=== PATIENT | female | born 1990 | race African-American/Black ===

== ENCOUNTER 2016-06-27 03:51 | Inpatient (IN) | payer OTHER ==
[~2016-06-27] VITALS: Ht 160 cm; Wt 59.0 kg
--- NOTE | ~2016-06-27 | H ---
[facility] [address] HISTORY AND PHYSICAL Name: AMISHA ELDER Room #: 408-P ADM IN M.R.#: [id number] Admission: 06/27/16 Attend Phys: Dick Schaffer Discharge: Date of : 89 Report #: [id number] THIS REPORT FOR: //name// CC: [facility] physician/PCP Dick Keane MD DATE OF SERVICE: 06/27/2016 CHIEF COMPLAINT: Abdominal pain. HISTORY OF PRESENT ILLNESS: The patient is a 25-year-old female with history of asthma, recent admission for appendicitis status post appendectomy on 06/19/2016, presented to the emergency room with an acute onset of low abdominal pain and rectal pain. The patient was admitted around June 18 for abdominal pain, had a CAT scan consistent with appendicitis and subsequently underwent an appendectomy on June 19 and was discharged home on June 19. The patient states she has been doing apparently well until last night when she started having severe abdominal pain while she was walking around. The pain is primarily in the lower abdomen and also in the rectal area. No history of any diarrhea, no nausea or vomiting, no fever or chills. Workup in the emergency room showed right adnexal mass on the CAT scan ____ shown to be right ovarian hemorrhagic cyst. The patient denies any shortness of breath, chest pain. PAST MEDICAL HISTORY: Significant for asthma as a child. No history of any peptic ulcer disease or bleeding disorder. No history of any surgery rather than appendectomy in the past. No hypertension and no diabetes. HOME MEDICATIONS: Include hydrocodone/APAP and Colace. Please look at the nursing documentation for dosages. ALLERGIES: She is allergic to ZOFRAN, unknown reaction. SOCIAL HISTORY: No smoking, alcohol abuse or illicit drug abuse. FAMILY HISTORY: Significant for asthma. REVIEW OF SYSTEMS: CONSTITUTIONAL: No fever, no chills, no weight loss, no weight gain. EYES: No change in vision. THROAT: Denies any sore throat. CARDIOVASCULAR: No chest pain, dizziness or palpitations. RESPIRATORY: No cough or expectoration. GASTROINTESTINAL: As above. [facility] [address] [place] [address] HISTORY AND PHYSICAL Name: JAELNATHANHEATHER BUENROSTRO Room #: 408-P [facility] IN M.R.#: [id number] Admission: 06/27/16 Attend Phys: Dick Schaffer Discharge: Date of : 89 Report #: [id number] GENITOURINARY: No dysuria or hematuria. No vaginal discharge. NEUROLOGIC: No focal numbness or weakness of the extremities. PSYCHIATRIC: No anxiety or depression. The 12-point review of system is negative other than the positives and the negatives dictated in the history of present illness and the review of system. PHYSICAL EXAMINATION: VITAL SIGNS: Blood pressure is 127/82, heart rate of 100 per minute, afebrile. The patient is saturating 100% on room, not in acute respiratory distress. HEENT: Eyes: Pupils equal and reactive to light. Throat appears normal. NECK: Supple. No JVD, no bruit, no lymphadenopathy. CARDIOVASCULAR: S1, S2, no S3, no murmur. CHEST: Bilateral air entry present. Clear on auscultation. ABDOMEN: Soft. Bowel sounds present. No mass, no organomegaly. There is tenderness in the lower abdomen. There is no guarding. PERIPHERY: No pedal edema. No calf tenderness. Dorsalis pedis 1+. NEUROLOGICAL: No gross motor or sensory deficit. LABORATORY DATA: Reviewed. White count is 19,000. BUN and creatinine are 15 and 0.9. Hemoglobin is normal at 13.4. Sodium is 137. AST and ALT are within normal limit. Lactic acid is 2.7. UA revealed trace protein, trace ketones and trace blood. IMAGING STUDIES: Ultrasound of the pelvis showed 29 x 20 x 30 mm complex thick-walled cyst, likely hemorrhagic ovarian cyst. CT of the abdomen showed postoperative changes. No abscess. There is also a right adnexal mass. ASSESSMENT AND PLAN: 1. Abdominal pain. 2. Right adnexal cyst/right ovarian hemorrhagic cyst. The patient will be continued on pain control with fentanyl IV p.r.n. I have also ordered p.o. pain medications. 3. Dehydration. The patient will be continued on IV fluids. 4. Status post appendectomy on 06/19/2016. Dr. Keane will be consulted. 5. Leukocytosis, most likely stress-related to hemorrhagic ovarian cyst. We will repeat CBC again this afternoon along with lactic acid. 6. Deep venous thrombosis prophylaxis. She will be placed on SCD on the leg for DVT prophylaxis. Treatment plan has been explained to the patient in detail. <ELECTRONICALLY SIGNED> By: Taye Carrillo MD 06/27/16 1336 [id number] Taye Carrillo MD /nt
--- NOTE | ~2016-06-27 | HC ---
[facility] [place] [address] [address] [place] [address] CONSULTATION Name: AMISHA ELDER PORTER Room #: [facility] IN M.R.#: [id number] Admission: 06/27/16 Attend Phys: Dick Schaffer Discharge: Date of : 90 Report #: [id number] THIS REPORT FOR: //name// CC: [facility] physician/PCP Dick Schaffer DATE OF SERVICE: 06/27/2016 HISTORY OF PRESENT ILLNESS: The patient is a very pleasant 25-year-old young lady who underwent laparoscopic appendectomy approximately one week ago. She was discharged home and then reports she had been feeling well over the past several days until yesterday when she developed deep pelvic and lower abdominal pain, worse on the right side. She was seen in the Emergency Department where she was noted to have an impressive leukocytosis at 19,000. CT scan of the abdomen and pelvis was obtained in the Emergency Department early this morning, which showed no evidence of abscess in the periappendiceal region. There was a trace amount of fluid in pericolic gutter, moderate gas and stool throughout the colon, no obvious obstruction, no gross free air. A cystic mass in the posterior cul-de-sac was noted measuring approximately 42 mm in greatest dimension. This would be consistent with an ovarian cyst. Ultrasound of the pelvis transvaginal was obtained and this showed a right pelvic complex cyst measuring 29 x 20 x 30 mm with low level internal echos consistent with hemorrhagic cyst, small hematoma could not be excluded. No obvious free air was identified. The patient was admitted to [facility] and was treated with IV fluids and analgesics. PAST MEDICAL HISTORY: Positive for asthma as a child, negative for hypertension or diabetes. HOME MEDICATIONS: Included [facility] and Colace only. ALLERGIES: Include ZOFRAN. SOCIAL HISTORY: Negative for tobacco, ETOH or drug use. FAMILY HISTORY: Positive for asthma. REVIEW OF SYSTEMS: A 12-point review of systems was otherwise negative except for that mentioned in the HPI. PHYSICAL EXAMINATION: VITAL SIGNS: The patient is afebrile and normotensive. GENERAL: She is awake, alert and oriented. She is in no acute distress. She does give appropriate history. Normal mood and affect is appreciated. HEENT: Head is atraumatic and normocephalic. Pupils are equally round and reactive to light. Cranial nerves are intact and symmetric bilaterally. No icterus is appreciated. Mucosae are pink and moist. NECK: Supple without lymphadenopathy. LUNGS: Clear to auscultation. No respiratory distress is [facility] [address] [place] [address] CONSULTATION Name: AMISHA ELDER Room #: 408-P [facility] IN M.R.#: [id number] Admission: 06/27/16 Attend Phys: Dick Schaffer Discharge: Date of : 90 Report #: [id number] noted. ABDOMEN: Soft and mildly distended. She is mildly tender to palpation in the pelvis and right lower quadrant. No obvious rebound or guarding is appreciated. DATA: Laboratory studies are reviewed. White count of 19,000, hemoglobin of 13.4, BUN 15, creatinine 0.9. Lactate was elevated at 2.7. Urinalysis showed trace protein, trace ketones and trace blood. IMPRESSION AND PLAN: 1. A 25-year-old female 1 week status post laparoscopic appendectomy for acute appendicitis. Final pathology showed acute suppurative appendicitis. No perforation had been identified at the operative setting, now with leukocytosis and possible fluid collection in the pelvis versus hemorrhagic ovarian cyst. No obvious leak from appendectomy site and no obvious abscess in the region near the cecum. Agree with plan for admission for IV fluid hydration and correction of electrolytes. We will begin Zosyn 3.375 g IV q.6 hours for a chance that there is an abscess formation and process. 2. We will repeat CT scan of the abdomen and pelvis with oral and IV contrast in approximately 36 hours to evaluate whether the fluid visualized in the right lower pelvis is more consistent with abscess versus ovarian cyst versus loop of bowel. CT scan from admission reviewed in detail with staff radiologist today. Will continue to follow closely and make further recommendations based upon clinical status. Consultation is very much appreciated. <ELECTRONICALLY SIGNED> By: Nathan Keane MD 06/28/16 1356 [id number] Nathan Keane MD /nt
[~2016-06-27 03:51] MED LIST: ALBUTEROL SUL5 MG/ML IH; AMOXICILLIN875 MG PO; COLACE100 MG PO; DAY TIME COLD-1 EAC1 PO; FLONASE 0.05%50 MCG NASAL; HYDROCODONE-ACE15 ML PO; HYDROCODONE-AP1 EAC6 PO; IBUPROFEN 600600 M1 PO; NAPROSYN500 MG PO; NOHOMEMEDICATIONS; NORCO 5-325 TA1 EACH PO; NYQUIL D COLD295 ML; PROMETHAZINE-C120 ML PO; PROVENTIL HFA6.7 G1 INH; TRAMADOL 50 MG50 MG PO; VENTOLIN HFA 1818 GM INH; ZPAK PO
[2016-06-27 03:52] VITALS: BP 127/82
[2016-06-27 04:14] LABS: ABSOLUTE NEUTROPHILS 10.5 thou/uL (1.4-8.2); BASOPHILS 0.5 % (0.0-2.0); HEMATOCRIT 40.7 % (37.0-47.0); HEMOGLOBIN 13.4 gm/dL (12.0-15.0); MCH 28.7 pg (26.0-34.0); MCV 87.2 fL (80.0-100.0); MONOCYTES 5.4 % (1.0-8.0); PLATELET COUNT 305 thou/uL (150-400); POLYS 55.1 % (36.0-66.0); RBC 4.66 mil/uL (4.20-5.00); RDW 13.1 % (10.5-14.5)
[2016-06-27 04:15] LABS: MANUAL DIFF NO
[2016-06-27 04:17] LABS: CALCIUM 9.1 mg/dL (8.5-10.1); CREATININE 0.9 mg/dL (0.6-1.3)
[2016-06-27 04:22] LABS: ALBUMIN 4.4 g/dL (3.4-5.0); DIRECT BILIRUBIN 0.1 mg/dL (<0.1-0.3); TOTAL BILIRUBIN 0.3 mg/dL (<0.1-1.0); TOTAL PROTEIN 8.7 g/dL (6.4-8.2)
[2016-06-27 07:13] LABS: URINE BILIRUBIN NEGATIVE (Negative); URINE BLOOD TRACE (Negative); URINE COLOR YELLOW; URINE GLUCOSE-RANDOM* NEGATIVE (Negative); URINE KETONES TRACE (Negative); URINE NITRITE NEGATIVE (Negative); URINE PROTEIN (DIPSTICK) TRACE (Negative); URINE SPECIFIC GRAVITY <= 1.005 (1.003-1.035); URINE UROBILINOGEN 0.2 E.U./dl (0.2-1.0)
[2016-06-27 07:14] VITALS: BP 96/56
[2016-06-27 17:00] LABS: ABSOLUTE NEUTROPHILS 4.8 thou/uL (1.4-8.2); BASOPHILS 0.4 % (0.0-2.0); EOSINOPHILS 1.6 % (0.0-3.0); HEMATOCRIT 35.7 % (37.0-47.0); HEMOGLOBIN 11.9 gm/dL (12.0-15.0); MCH 29.1 pg (26.0-34.0); MCHC 33.2 % (28.0-37.0); MCV 87.6 fL (80.0-100.0); RBC 4.08 mil/uL (4.20-5.00); RDW 12.6 % (10.5-14.5); WBC 8.8 thou/uL (4.0-11.0)
[2016-06-27 17:01] LABS: MANUAL DIFF NO; PLATELET COUNT 209 thou/uL (150-400)
[2016-06-27 19:35] VITALS: BP 112/58
[2016-06-28 00:42] VITALS: BP 120/80
[2016-06-28 04:25] VITALS: BP 108/68
[2016-06-28 08:57] LABS: ABSOLUTE NEUTROPHILS 3.7 thou/uL (1.4-8.2); BASOPHILS 0.4 % (0.0-2.0); EOSINOPHILS 2.1 % (0.0-3.0); HEMATOCRIT 32.8 % (37.0-47.0); HEMOGLOBIN 10.8 gm/dL (12.0-15.0); LYMPHOCYTES 38.4 % (24.0-44.0); MCH 28.9 pg (26.0-34.0); MCHC 32.9 % (28.0-37.0); MONOCYTES 5.2 % (1.0-8.0); PLATELET COUNT 196 thou/uL (150-400); POLYS 53.9 % (36.0-66.0); RBC 3.72 mil/uL (4.20-5.00); WBC 6.9 thou/uL (4.0-11.0)
[2016-06-28 08:58] LABS: ABG SAMPLE TYPE VENOUS; LACTATE 0.81 mmol/L (0.5-2.0)
[2016-06-28 08:58] LABS: MANUAL DIFF NO
[2016-06-28 08:59] LABS: STICK SITE LAB
[2016-06-28 09:02] LABS: CALCIUM 8.3 mg/dL (8.5-10.1); CREATININE 0.8 mg/dL (0.6-1.3); MAGNESIUM 1.9 mg/dL (1.8-2.4)
[2016-06-28 16:01] LABS: BASOPHILS 0.5 % (0.0-2.0); EOSINOPHILS 1.3 % (0.0-3.0); HEMATOCRIT 36.3 % (37.0-47.0); HEMOGLOBIN 12.1 gm/dL (12.0-15.0); LYMPHOCYTES 28.9 % (24.0-44.0); MCH 29.4 pg (26.0-34.0); MCHC 33.4 % (28.0-37.0); MONOCYTES 6.3 % (1.0-8.0); PLATELET COUNT 222 thou/uL (150-400); RBC 4.12 mil/uL (4.20-5.00); RDW 13.1 % (10.5-14.5); WBC 6.3 thou/uL (4.0-11.0)
[2016-06-28 16:11] LABS: MANUAL DIFF NO
[2016-06-28 19:40] VITALS: BP 127/77
[2016-06-29 05:10] VITALS: BP 114/75
[2016-06-29 08:43] LABS: ABSOLUTE NEUTROPHILS 5.6 thou/uL (1.4-8.2); BASOPHILS 0.4 % (0.0-2.0); EOSINOPHILS 1.1 % (0.0-3.0); HEMATOCRIT 34.8 % (37.0-47.0); HEMOGLOBIN 11.6 gm/dL (12.0-15.0); LYMPHOCYTES 27.3 % (24.0-44.0); MCH 29.1 pg (26.0-34.0); MCHC 33.2 % (28.0-37.0); MCV 87.6 fL (80.0-100.0); MONOCYTES 5.9 % (1.0-8.0); PLATELET COUNT 195 thou/uL (150-400); POLYS 65.3 % (36.0-66.0); RBC 3.97 mil/uL (4.20-5.00); RDW 12.8 % (10.5-14.5); WBC 8.6 thou/uL (4.0-11.0)
[2016-06-29 08:44] LABS: MANUAL DIFF NO
[2016-06-29 08:49] LABS: CALCIUM 8.4 mg/dL (8.5-10.1); CREATININE 0.8 mg/dL (0.6-1.3); MAGNESIUM 1.8 mg/dL (1.8-2.4); POTASSIUM 3.6 mmol/L (3.5-5.1)
[2016-06-29 08:57] VITALS: BP 122/67
[2016-06-29 16:00] VITALS: BP 112/67
[2016-06-29 20:25] VITALS: BP 130/81
[2016-06-30] VITALS (10 sets, daily range): BP systolic 103–128; BP diastolic 68–85
[2016-06-30 09:31] LABS: APTT 28.4 Seconds (24.5-32.8); INR 1.1; PROTIME 11.6 Seconds (9.3-11.4)
[2016-07-01 05:44] VITALS: BP 110/65
[2016-07-01 08:00] VITALS: BP 120/69
[2016-07-01] MEDS ORDERED: HYDROCODON-ACE1 EAC7 PO (12:47)
[2016-07-01] MEDS ORDERED: AUGMENTIN 875875 MG PO (12:47)
[2016-07-01 14:23] VITALS: BP 120/69
[2016-08-21] MEDS ORDERED: DICLEGIS DR 101 EACH PO (14:38)
[2016-08-31] MEDS ORDERED: PRENATAL COMPL1 EACH PO (16:24)
== END 2016-07-01 14:53 | disposition home or self-care (01) | DRG 761 ==
LOC: ER 03:51 → 4N 06:32 → EROBS 06:32 → 4N 07:16
PROVIDERS: Emergency Medicine; Hospitalist; Internal Medicine; Otolaryngology; Radiology Diagnostic Radiology
PROC: 0W9J30Z Drainage of Pelvic Cavity with Drainage Device, Percutaneous Approach (ICD-10-PCS; principal; 2016-06-28)
DX: N83.201 Unspecified ovarian cyst, right side (principal); N94.89 Other specified conditions associated with female genital organs and menstrual cycle; E86.0 Dehydration; D72.829 Elevated white blood cell count, unspecified; J45.909 Unspecified asthma, uncomplicated; Z79.899 Other long term (current) drug therapy; Z90.49 Acquired absence of other specified parts of digestive tract; Z88.8 Allergy status to other drugs, medicaments and biological substances; Z82.5 Family history of asthma and other chronic lower respiratory diseases
CPT/HCPCS: 10091

== ENCOUNTER 2016-09-13 00:15 | Inpatient (IN) | payer OTHER ==
[~2016-09-13] VITALS: Ht 152.4 cm; Wt 57.6 kg
--- NOTE | ~2016-09-13 | HC ---
[facility] [place] [address] CONSULTATION Name: AMISHA ELDER Room #: 401-I ADM IN M.R.#: [id number] Admission: 09/13/16 Attend Phys: Re Contreras MD Discharge: Date of : 90 Report #: [id number] THIS REPORT FOR: //name// CC: [facility] physician/PCP Re Contreras REASON FOR CONSULTATION: I was asked to evaluate concerning pharyngitis symptoms and tender adenopathy. HISTORY OF PRESENT ILLNESS: The patient is a 26-year-old, who for last 3 months has had multiple issues starting of with appendectomy on 08/20/2015. Subsequently, developed right pelvic hematoma that required drainage. Cultures from this remain negative. Subsequent to this, she became . Admitted on 09/13/2016 with upper abdominal pain associated with nausea and vomiting. She presented to the Emergency Room and found to have lipase of 1200. She has had previous episodes of pancreatitis in 2014. No report of increased alcohol use or any other drugs. Her triglycerides were normal. Imaging studies of the abdomen showed mildly distended gallbladder without evidence of stones. This morning she awoke with increased discomfort in her throat with odynophagia. She had some tenderness in her anterior cervical nodes noted by Dr. Contreras this morning. No documented fever or chills. ALLERGIES: ONDANSETRON. MEDICATIONS: As noted on her MAR having started ceftriaxone today. PAST MEDICAL HISTORY: Childhood asthma, otherwise as noted above. FAMILY HISTORY: Noncontributory. SOCIAL HISTORY: Nonsmoker, no significant alcohol intake. REVIEW OF SYSTEMS: No cough or sputum production. No rash or arthritis symptoms. No dysuria. PHYSICAL EXAMINATION: VITAL SIGNS: Afebrile and hemodynamically stable. Room air saturation was normal. SKIN: Unremarkable other than tattoos. HEENT: Noted 1+ tonsillar swelling. NECK: She had tender anterior cervical nodes bilaterally. Neck was otherwise supple. No other oral lesions identified. CHEST: Clear. ABDOMEN: Tender, mostly in the epigastric region. No guarding or rebound. EXTREMITIES: Unremarkable. LABORATORY STUDIES: Sodium 137, potassium 3.5, bicarbonate 23, creatinine 0.6. [facility] [address] [place] [address] CONSULTATION Name: AMISHA ELDER PORTER Room #: 401-I [facility] IN [facility].#: [id number] Admission: 09/13/16 Attend Phys: Re Contreras MD Discharge: Date of : 90 Report #: [id number] Liver function tests normal. Lipase now is down to 587. Triglycerides were normal. Hemoglobin 10.7; white count 6.6; platelet count 179,000. Abdominal ultrasound shows that she is 6 weeks . Urinalysis unremarkable. Throat culture is currently pending. IMPRESSION: A 26-year-old with acute pancreatitis in the setting of intrauterine . Now with pharyngitis symptoms and mild tonsillar swelling associated with cervical adenitis. I am suspecting viral etiology would be most likely, although cannot yet exclude Group A Streptococcus, although her posterior oropharynx was fairly unremarkable. With vomiting, she could have irritated her upper tract, but this I think would be unlikely to cause her adenitis. Would also entertain the possibility of this being a viral process associated with her pancreatitis. So far no other etiology identified. No history of cholelithiasis to suggest passage of a stone. Would recommend continuing ceftriaxone, pending culture results. We will also check EBV and CMV titers. <ELECTRONICALLY SIGNED> By: Renny Silva MD 09/15/16 0813 [id number] Renny Silva MD /nt
[~2016-09-13 00:15] MED LIST changes: +AUGMENTIN 875875 MG PO; +DICLEGIS DR 101 EACH PO; +HYDROCODON-ACE1 EAC7 PO; +PRENATAL COMPL1 EACH PO
[2016-09-13 00:21] VITALS: BP 119/70
[2016-09-13 01:07] LABS: ABSOLUTE NEUTROPHILS 6.2 thou/uL (1.4-8.2); BASOPHILS 0.4 % (0.0-2.0); EOSINOPHILS 1.9 % (0.0-3.0); HEMATOCRIT 35.8 % (37.0-47.0); HEMOGLOBIN 11.9 gm/dL (12.0-15.0); LYMPHOCYTES 31.3 % (24.0-44.0); MCH 29.1 pg (26.0-34.0); MCHC 33.2 g/dL (28.0-37.0); MCV 87.5 fL (80.0-100.0); MONOCYTES 6.1 % (1.0-8.0); PLATELET COUNT 217 thou/uL (150-400); POLYS 60.3 % (36.0-66.0); RBC 4.09 mil/uL (4.20-5.00); RDW 13.4 % (10.5-14.5); WBC 10.2 thou/uL (4.0-11.0)
[2016-09-13 01:16] LABS: MANUAL DIFF NO
[2016-09-13 01:25] LABS: CALCIUM 8.9 mg/dL (8.5-10.1); CREATININE 0.6 mg/dL (0.6-1.3); POTASSIUM 3.9 mmol/L (3.5-5.1)
[2016-09-13 01:29] LABS: ALBUMIN 3.6 g/dL (3.4-5.0); TOTAL BILIRUBIN 0.2 mg/dL (<0.1-1.0); TOTAL PROTEIN 7.1 g/dL (6.4-8.2)
[2016-09-13 01:29] LABS: URINE BILIRUBIN NEGATIVE (Negative); URINE BLOOD TRACE (Negative); URINE COLOR YELLOW; URINE GLUCOSE-RANDOM* NEGATIVE (Negative); URINE KETONES NEGATIVE (Negative); URINE LEUKOCYTES-REFLEX NEGATIVE (Negative); URINE PROTEIN (DIPSTICK) NEGATIVE (Negative); URINE SPECIFIC GRAVITY 1.015 (1.003-1.035); URINE UROBILINOGEN 0.2 E.U./dl (0.2-1.0)
[2016-09-13 03:07] VITALS: BP 105/63
[2016-09-13 03:50] VITALS: BP 106/67
[2016-09-13 08:00] VITALS: BP 101/63
[2016-09-13 15:13] VITALS: BP 109/57
[2016-09-13 19:20] VITALS: BP 102/56
[2016-09-14 00:37] VITALS: BP 100/52
[2016-09-14 04:53] VITALS: BP 104/62
[2016-09-14 06:00] LABS: HEMOGLOBIN 10.7 gm/dL (12.0-15.0); MCH 29.6 pg (26.0-34.0); MCHC 33.5 g/dL (28.0-37.0); MCV 88.4 fL (80.0-100.0); RBC 3.62 mil/uL (4.20-5.00); RDW 13.3 % (10.5-14.5); WBC 6.6 thou/uL (4.0-11.0)
[2016-09-14 06:15] LABS: ALBUMIN 3.1 g/dL (3.4-5.0); CALCIUM 8.3 mg/dL (8.5-10.1); CREATININE 0.6 mg/dL (0.6-1.3); POTASSIUM 3.5 mmol/L (3.5-5.1); TOTAL BILIRUBIN 0.5 mg/dL (<0.1-1.0); TOTAL PROTEIN 6.2 g/dL (6.4-8.2)
[2016-09-14 07:15] VITALS: BP 93/41
[2016-09-14 16:34] VITALS: BP 98/50
[2016-09-14 20:00] VITALS: BP 106/63
[2016-09-15 04:00] VITALS: BP 100/56
[2016-09-15 08:24] VITALS: BP 90/50
[2016-09-15] MEDS ORDERED: URSODIOL300 MG PO (12:49)
[2016-09-15] MEDS ORDERED: HYDROCODONE-AP1 EAC6 PO (12:49)
[2016-09-15 17:05] VITALS: BP 90/50
[2016-09-15 18:06] LABS: HIV ANTIBODY Non Reactive (Non Reactive)
[2016-09-16 01:06] LABS: ANTI-EBNA >600.0 U/mL (0.0-17.9); ANTI-VCA/IgG >600.0 U/mL (0.0-17.9); EBV EARLY ANTIGEN <9.0 U/mL (0.0-8.9)
[2016-09-18 15:11] LABS: ANTI-VCA/IgM <36.0 U/mL (0.0-35.9)
== END 2016-09-15 18:16 | disposition home or self-care (01) | DRG 781 ==
LOC: ER 00:15 → EROBS 02:10 → 4N 02:10
PROVIDERS: Emergency Medicine; Family Medicine; Specialist
DX: O99.611 Diseases of the digestive system complicating pregnancy, first trimester (principal); K85.90 Acute pancreatitis without necrosis or infection, unspecified; O99.511 Diseases of the respiratory system complicating pregnancy, first trimester; J02.9 Acute pharyngitis, unspecified; J45.909 Unspecified asthma, uncomplicated; Z90.49 Acquired absence of other specified parts of digestive tract; Z88.8 Allergy status to other drugs, medicaments and biological substances; Z79.899 Other long term (current) drug therapy; Z3A.08 8 weeks gestation of pregnancy
CPT/HCPCS: 10091